=== PATIENT | female | born 1985 | race Caucasian/White ===

== ENCOUNTER → 2020-08-30 | Outpatient (CLI) | payer OTHER ==
[~2020-08-30] MED LIST: PROZAC 20 MG20 MG PO; XANAX XR1 MG PO
== END ==
LOC: LAB 07:45
PROVIDERS: ATTEND Nurse Practitioner
DX: Z20.828 Contact with and (suspected) exposure to other viral communicable diseases (principal)

== ENCOUNTER → 2021-07-15 | Outpatient (CLI) | payer OTHER ==
--- NOTE | ~2021-07-15 | EEG ---
[facility] [address] [place] [address] ELECTROENCEPHALOGRAM Name: ALFRED PHILLIPS Room #: REG [facility] M.R.#: [id number] Admission: 07/15/21 Attend Phys: THOM Anderson Discharge: Date of : 87 Report #: [id number] THIS REPORT FOR: //name// DATE OF SERVICE: 07/15/2021 This patient is being evaluated for the possibility of a seizure. The EEG was done by placing electrodes by standard 10-20 system of electrode placement. Both referential and sequential montages were used for recording. Background activity in this patient's EEG is about 11 Hz and 30 microvolt. The patient went to sleep and that is associated with bilaterally symmetrical sleep spindle and vertex sharp waves. Photic stimulation is unremarkable. Throughout the record, no active epileptiform activity was noticed. IMPRESSION: This patient's EEG is within normal limits. Thank you very much for this referral. By: [id number] [id number] Willian Hinkle MD /nt
== END ==
LOC: NEURO 10:04
PROVIDERS: ATTEND Nurse Practitioner
DX: Z12.31 Encounter for screening mammogram for malignant neoplasm of breast (principal); G40.A09 Absence epileptic syndrome, not intractable, without status epilepticus